=== PATIENT | male | born 1965 | race Caucasian/White ===

== ENCOUNTER 2019-05-18 14:03 | Emergency (ER) | payer BC ==
[2019-05-18 14:12] VITALS: RESP 18
--- NOTE | 2019-05-18 14:25 | ED ---
General Adult HPI - General Source: patient Mode of arrival: ambulatory Limitations: no limitations <Bhavna Kendall - Last Filed: 05/18/19 17:17> <Deysi Mari - Last Filed: 05/21/19 01:38> - General Chief complaint: Abdominal Pain Stated complaint: Side pain Time Seen by Provider: 05/18/19 14:15 - History of Present Illness Initial comments: 54-year-old male history of hypertension and previous hernia repair presents emergency department for evaluation of right groin/right side of the abdomen pain, redness of the skin. Patient states approximately 6 days prior he developed pain in the right groin/abdominal area. He states that it was not initially very red. He states that the pain has been increasing as well as the redness. Denies vesicular lesions, rash. Patient states prior to the onset of the redness he thought he maybe had strained something. Patient states he does not feel the pain is in his joint he states he has no difficulty in breathing however when the skin is stretched her touch there is increasing pain. Patient intermittently went to urgent care they did an x-ray of his right hip he states there is arthritis otherwise no other findings. Patient states he was concerned as infection because he has sensation of feeling warm. Denies recording a temperature. Patient denies general malaise. Patient denies any swelling of the right lower extremity, history of DVT/PE, recent surgeries, history of cancer. Patient denies any chest pain, SOB. Upon arrival patient ambulates witho ut difficulty he appears well, nontoxic. HR WNL-pt afebrile. (Bhavna Kendall) - Related Data Previous Rx's Medication Instructions Recorded Cephalexin [Keflex] 500 mg PO Q6HR 10 Days #40 cap 05/18/19 Sulfamethox-Tmp 800-160Mg [Bactrim 1 tab PO Q12HR 10 Days #20 tab 05/18/19 DS 800-160 mg] Allergies Allergy/AdvReac Type Severity Reaction Status Date / Time No Known Allergies Allergy Verified 05/18/19 14:07 Review of Systems ROS Other: All systems not noted in ROS Statement are negative. <Bhavna Kendall - Last Filed: 05/18/19 17:17> ROS Other: All systems not noted in ROS Statement are negative. <Deysi Mari - Last Filed: 05/21/19 01:38> ROS Statement: Those systems with pertinent positive or pertinent negative responses have been documented in the HPI. Past Medical History Past Medical History: Hypertension History of Any Multi-Drug Resistant Organisms: None Reported Past Surgical History: Hernia Repair Past Psychological History: No Psychological Hx Reported Smoking Status: Never smoker Past Alcohol Use History: Occasional Past Drug Use History: None Reported <Bhavna Kendall - Last Filed: 05/18/19 17:17> General Exam Limitations: no limitations <Bahvna Kendall - Last Filed: 05/18/19 17:17> - General Exam Comments Initial Comments: General: The patient is awake and alert, in no distress, and does not appear acutely ill. Eye: Pupils are equal, round and reactive to light, extra-ocular movements are intact. No nystagmus. There is normal conjunctiva bilaterally. No signs of icterus. Ears, nose, mouth and throat: There are moist mucous membranes and no oral lesions. Neck: The neck is supple, there is no tenderness or JVD. Cardiovascular: There is a regular rate and rhythm. No murmur, rub or gallop is appreciated. Respiratory: Lungs are clear to auscultation, respirations are non-labored, breath sounds are equal. No wheezes, stridor, rales, or rhonchi. Gastrointestinal: Soft, non-distended, non-tender abdomen without masses or organomegaly noted. There is no rebound or guarding present. Musculoskeletal: Upon physical examination of the right hip/flank there is warmth and redness with poorly demarcated borders. There is evidence of folliculitis. No palpable abscess. Extends into groin. There is no evidence of spread into the perineal region. Normal ROM, no tenderness at the hip joint. Strength 5/5. Sensation intact. Radial pulses equal bilaterally 2+. No calf or distal swelling. Neurological: A&O x 3. CN II-XII intact grossly, There are no obvious motor or sensory deficits. Coordination appears grossly intact. Speech is normal. Skin: Skin is warm and dry and no rashes or lesions are noted. Psychiatric: Cooperative, appropriate mood & affect, normal judgment. (Bhavna Kendall) Course Vital Signs 05/18/19 05/18/19 14:07 17:25 Temperature 98.7 F 98.3 F Pulse Rate 85 94 Respiratory 18 18 Rate Blood Pressure 157/93 175/98 O2 Sat by Pulse 98 98 Oximetry Medical Decision Making - Lab Data Result diagrams: 05/18/19 15:02 05/18/19 15:02 <Bhavna Kendall - Last Filed: 05/18/19 17:17> - Lab Data Result diagrams: 05/18/19 15:02 05/18/19 15:02 <Deysi Mari - Last Filed: 05/21/19 01:38> - Medical Decision Making 54-year-old male presenting to [facility] department for evaluation of right side pain. Evidence of cellulitis and physical examination. Given the region laboratory studies were obtained. Negative lactic acid. No leukocytosis. Patient does not appear septic. Patient does have elevation of CRP. Patient was evaluated by attending provider Dr. Mari. CT has findings consistent with a cellulitis. Patient requesting discharge. At this time I feel patient is stable for discharge home her strict return parameters for spread of infection worsening pain fever or flulike symptoms patient verbalized understanding. She was provided an initial dose of IV antibiotics in the emergency department as well as Keflex and Bactrim outpatient. Attendings agreeable discharge patient to follow-up with primary care provider on Monday or Monday he is agreeable discharged appearing well (Bhavna Kendall) I was available for consultation in the emergency department. The history and physical exam were done by the midlevel provider. I was consulted for this patients care. I reviewed the case with the midlevel provider and based on their presentation of the patient, I agree with the assessment, medical decision making and plan of care as documented. There were no signs of necrotizing fascitis or fourneires gangrene. Chart was dictated using [employer] dictation software. Attempts were made to correct any dictation errors however some typographical errors may persist. (Deysi Mari) - Lab Data Lab Results 05/18/19 05/18/19 05/18/19 Range/Units 15:02 15:02 15:02 WBC 10.0 (3.8-10.6) k/uL RBC 4.86 (4.30-5.90) m/uL Hgb 14.5 (13.0-17.5) gm/dL Hct 40.8 (39.0-53.0) % MCV 84.0 (80.0-100.0) fL MCH 29.8 (25.0-35.0) pg MCHC 35.5 (31.0-37.0) g/dL RDW 12.6 (11.5-15.5) % Plt Count 300 (150-450) k/uL Neutrophils % 67 % Lymphocytes % 22 % Monocytes % 6 % Eosinophils % 2 % Basophils % 1 % Neutrophils # 6.7 (1.3-7.7) k/uL Lymphocytes # 2.2 (1.0-4.8) k/uL Monocytes # 0.6 (0-1.0) k/uL Eosinophils # 0.2 (0-0.7) k/uL Basophils # 0.1 (0-0.2) k/uL Sodium 137 (137-145) mmol/L Potassium 4.4 (3.5-5.1) mmol/L Chloride 102 (98-107) mmol/L Carbon Dioxide 24 (22-30) mmol/L Anion Gap 11 mmol/L BUN 15 (9-20) mg/dL Creatinine 0.73 (0.66-1.25) mg/dL Est GFR (CKD-EPI)AfAm >90 (>60 ml/min/1.73 sqM) Est GFR (CKD-EPI)NonAf >90 (>60 ml/min/1.73 sqM) Glucose 110 H (74-99) mg/dL Plasma Lactic Acid [place] 1.2 (0.7-2.0) mmol/L Calcium 9.2 (8.4-10.2) mg/dL Total Bilirubin 0.9 (0.2-1.3) mg/dL AST 36 (17-59) U/L ALT 51 (21-72) U/L Alkaline Phosphatase 53 (38-126) U/L C-Reactive Protein 43.9 H (<10.0) mg/L Total Protein 7.8 (6.3-8.2) g/dL Albumin 4.3 (3.5-5.0) g/dL Disposition Is patient prescribed a controlled substance at d/c from ED?: No Time of Disposition: 17:01 <Bhavna Kendall - Last Filed: 05/18/19 17:17> <Deysi Mari - Last Filed: 05/21/19 01:38> Clinical Impression: Cellulitis of right groin, Folliculitis Disposition: HOME SELF-CARE Condition: Good Instructions (If sedation given, give patient instructions): Cellulitis (ED) Additional Instructions: Please use medication as discussed. Please follow-up with family doctor in the next 2 days. Please return to emergency room if the symptoms increase or worsen or for any other concerns. Prescriptions: Sulfamethox-Tmp 800-160Mg [Bactrim DS 800-160 mg] 1 tab PO Q12HR 10 Days #20 tab Cephalexin [Keflex] 500 mg PO Q6HR 10 Days #40 cap Referrals: Avi Randle MD [Primary Care Provider] - 1-2 days
[2019-05-18] MEDS ORDERED: SODIUM CHLORIDE 0.9% 1,000 ML IV ONE (14:41)
[2019-05-18] MEDS ORDERED: CLINDAMYCIN 600 MG in DEXTROSE 5% IN WATER 50 ML IVPB STA ×2 (14:42)
[2019-05-18] MEDS ORDERED: SODIUM CHLORIDE 0.9% 1,000 ML IV SCH (14:45)
[2019-05-18 15:52] LABS: ALT 51 U/L (21-72); AST 36 U/L (17-59); African American GFR (CKD) >90 (>60 ml/min/1.73 sqM); Albumin 4.3 g/dL (3.5-5.0); Alkaline Phosphatase 53 U/L (38-126); Anion Gap 11 mmol/L; Blood Urea Nitrogen 15 mg/dL (9-20); Calcium 9.2 mg/dL (8.4-10.2); Carbon Dioxide 24 mmol/L (22-30); Chloride 102 mmol/L (98-107); Glucose 110 mg/dL (74-99); Potassium 4.4 mmol/L (3.5-5.1); Sodium 137 mmol/L (137-145); Total Bilirubin 0.9 mg/dL (0.2-1.3); Total Protein 7.8 g/dL (6.3-8.2)
[2019-05-18 15:56] LABS: Basophils # (A) 0.1 k/uL (0-0.2); Basophils % (A) 1 %; Eosinophils # (A) 0.2 k/uL (0-0.7); Eosinophils % (A) 2 %; HCT 40.8 % (39.0-53.0); HGB 14.5 gm/dL (13.0-17.5); Lymphocytes # (A) 2.2 k/uL (1.0-4.8); Lymphocytes % (A) 22 %; MCH 29.8 pg (25.0-35.0); MCHC 35.5 g/dL (31.0-37.0); Mean Platelet Volume 6.2; Monocytes # (A) 0.6 k/uL (0-1.0); Monocytes % (A) 6 %; Neutrophils # (A) 6.7 k/uL (1.3-7.7); Neutrophils % (A) 67 %; Platelet Count 300 k/uL (150-450); RBC 4.86 m/uL (4.30-5.90); RDW 12.6 % (11.5-15.5)
[2019-05-18 16:17] LABS: C Reactive Protein 43.9 mg/L (<10.0)
--- NOTE | 2019-05-18 16:37 | CT ---
EXAMINATION TYPE: CT pelvis w con DATE OF EXAM: 05/18/2019 COMPARISON: None HISTORY: right groin pain CT DLP: 2286 mGycm Automated exposure control for dose reduction was used. CONTRAST: Performed with IV Contrast, patient injected with 100 mL of Isovue 300. FINDINGS: There is no free fluid in the pelvis. Bladder distends smoothly. There are bilateral inguinal hernias that contain fat. There is no sign of a pelvic mass. Appendix appears normal. There is some fat stranding in the subcutaneous tissues lateral to the right ilium and hip joint. The re is a dominant right inguinal lymph node measures 2 x 1.3 cm. There is subcutaneous edema over the lateral aspect of the abdomen that is not included entirely on the exam. The bony pelvis appears inta ct. Proximal femurs and hip joints appear normal. Sacroiliac joints appear normal. IMPRESSION: THERE IS EXTENSIVE SUBCUTANEOUS FAT STRANDING OVER THE LATERAL ASPECT OF THE ABDOMEN AND PELVIS THAT COULD RELATE TO SOME BRUISING. SLIGHTLY ENLARGED RIGHT INGUINAL LYMPH NODE. NO FRACTURE SEEN.
[2019-05-18 17:30] VITALS: BP 175/98; PULSE 94; TEMP 98.3
== END 2019-05-18 17:25 | disposition home or self-care (01) ==
LOC: EC 14:03
DX: L03.314 Cellulitis of groin (principal); L73.9 Follicular disorder, unspecified; R79.82 Elevated C-reactive protein (CRP)
CPT/HCPCS: 36415; 80053; 83605; 85025; 86140; 87040; 72193; 99284; 96365; 96361 ×2; Q9967

== ENCOUNTER 2019-08-12 07:13 | Emergency (ER) | payer BC ==
[2019-08-12 07:17] VITALS: RESP 18; TEMP 98.8
[2019-08-12] MEDS ORDERED: SODIUM CHLORIDE 0.9% 1,000 ML IV STA (07:25)
[2019-08-12] MEDS ORDERED: SODIUM CHLORIDE 0.9% 500 ML 500 ML IV STA (07:25)
--- NOTE | 2019-08-12 07:42 | ED ---
General Adult HPI - General Chief complaint: Abdominal Pain Stated complaint: abd pain Time Seen by Provider: 08/12/19 07:15 Source: patient, RN notes reviewed, old records reviewed Mode of arrival: ambulatory Limitations: no limitations - History of Present Illness Initial comments: This is a 54-year-old male who presents to the emergency department with past medical history of diverticulosis. Patient comes in complaining of a day and a half history of abdominal pain more so on the left than the right. Patient states driving in hitting bumps did causing some pain. Patient states the pain does seem to wax and wane. Patient denies any nausea or vomiting. Patient states she did have little diarrhea but that was after he took some medicine yes terday to promote bowel movements. He doesn't know the name of this medicine. Patient denies any fever chills per patient denies any back pain. Patient denies any dysuria hematuria urinary frequency. - Related Data Previous Rx's Medication Instructions Recorded Cephalexin [Keflex] 500 mg PO Q6HR 10 Days #40 cap 05/18/19 Sulfamethox-Tmp 800-160Mg [Bactrim 1 tab PO Q12HR 10 Days #20 tab 05/18/19 DS 800-160 mg] Amoxicillin/Potassium Clav 1 each PO Q12HR #28 tab 08/12/19 [Augmentin 875-125 Tablet] Allergies Allergy/AdvReac Type Severity Reaction Status Date / Time No Known Allergies Allergy Verified 05/18/19 14:07 Review of Systems ROS Statement: Those systems with pertinent positive or pertinent negative responses have been documented in the HPI. ROS Other: All systems not noted in ROS Statement are negative. Past Medical History Past Medical History: Hypertension Additional Past Medical History / Comment(s): diverticulitis History of Any Multi-Drug Resistant Organisms: None Reported Past Surgical History: Hernia Repair Past Psychological History: No Psychological Hx Reported Smoking Status: Never smoker Past Alcohol Use History: Occasional Past Drug Use History: None Reported General Exam - General Exam Comments Initial Comments: GENERAL: Patient is well-developed and well-nourished. Patient is nontoxic and well- hydrated and is in mild distress. ENT: Neck is soft and supple. No significant lymphadenopathy is noted. Oropharynx is clear. Moist mucous membranes. Neck has full range of motion without eliciting any pain. EYES: The sclera were anicteric and conjunctiva were pink and moist. Extraocular movements were intact and pupils were equal round and reactive to light. Eyelids were unremarkable. PULMONARY: Unlabored respirations. Good breath sounds bilaterally. No audible rales rhonchi or wheezing was noted. CARDIOVASCULAR: There is a regular rate and rhythm without any murmurs gallops or rubs. ABDOMEN: Patient has right lower quadrant abdominal tenderness SKIN: Skin is clear with no lesions or rashes and otherwise unremarkable. NEUROLOGIC: Patient is alert and oriented x3. Cranial nerves II through XII are grossly intact. Motor and sensory are also intact. Normal speech, volume and content. Symmetrical smile. MUSCULOSKELETAL: Normal extremities with adequate strength and full range of motion. No lower extremity swelling or edema. No calf tenderness. LYMPHATICS: No significant lymphadenopathy is noted PSYCHIATRIC: Normal psychiatric evaluation. Limitations: no limitations Course Vital Signs 08/12/19 07:15 Temperature 98.8 F Pulse Rate 95 Respiratory 18 Rate Blood Pressure 154/89 O2 Sat by Pulse 96 Oximetry Medical Decision Making - Medical Decision Making CT of the abdomen and pelvis shows acute diverticulitis with no complications. - Lab Data Result diagrams: 08/12/19 07:33 08/12/19 07:33 Lab Results 08/12/19 08/12/19 08/12/19 Range/Units 07:33 07:33 07:33 WBC 7.8 (3.8-10.6) k/uL RBC 5.47 (4.30-5.90) m/uL Hgb 15.6 (13.0-17.5) gm/dL Hct 45.3 (39.0-53.0) % MCV 82.8 (80.0-100.0) fL MCH 28.5 (25.0-35.0) pg MCHC 34.4 (31.0-37.0) g/dL RDW 12.9 (11.5-15.5) % Plt Count 187 (150-450) k/uL Neutrophils % 74 % Lymphocytes % 14 % Monocytes % 6 % Eosinophils % 1 % Basophils % 2 % Neutrophils # 5.8 (1.3-7.7) k/uL Lymphocytes # 1.1 (1.0-4.8) k/uL Monocytes # 0.5 (0-1.0) k/uL Eosinophils # 0.1 (0-0.7) k/uL Basophils # 0.2 (0-0.2) k/uL Sodium 136 L (137-145) mmol/L Potassium 4.0 (3.5-5.1) mmol/L Chloride 101 (98-107) mmol/L Carbon Dioxide 24 (22-30) mmol/L Anion Gap 11 mmol/L BUN 11 (9-20) mg/dL Creatinine 0.78 (0.66-1.25) mg/dL Est GFR (CKD-EPI)AfAm >90 (>60 ml/min/1.73 sqM) Est GFR (CKD-EPI)NonAf >90 (>60 ml/min/1.73 sqM) Glucose 135 H (74-99) mg/dL Calcium 9.2 (8.4-10.2) mg/dL Total Bilirubin 1.1 (0.2-1.3) mg/dL AST 28 (17-59) U/L ALT 44 (4-49) U/L Alkaline Phosphatase 62 (38-126) U/L Total Protein 8.1 (6.3-8.2) g/dL Albumin 4.5 (3.5-5.0) g/dL Amylase 34 (30-110) U/L Lipase 41 (23-300) U/L Urine Color Yellow Urine Appearance Clear (Clear) Urine pH 6.0 (5.0-8.0) Ur Specific [place] 1.007 (1.001-1.035) Urine Protein Negative (Negative) Urine Glucose (UA) Negative (Negative) Urine Ketones Negative (Negative) Urine Blood Negative (Negative) Urine Nitrite Negative (Negative) Urine Bilirubin Negative (Negative) Urine Urobilinogen <2.0 (<2.0) mg/dL Ur Leukocyte Esterase Negative (Negative) Disposition Clinical Impression: Diverticulitis Disposition: HOME SELF-CARE Condition: Good Instructions (If sedation given, give patient instructions): Diverticulitis (ED) Prescriptions: Amoxicillin/Potassium Clav [Augmentin 875-125 Tablet] 1 each PO Q12HR #28 tab Is patient prescribed a controlled substance at d/c from ED?: No Referrals: Avi Randle MD [Primary Care Provider] - 1-2 days Time of Disposition: 09:03
[2019-08-12 07:45] LABS: Appearance,Urine Clear (Clear); Basophils # (A) 0.2 k/uL (0-0.2); Basophils % (A) 2 %; Bilirubin,Urine Negative (Negative); Blood,Urine Negative (Negative); Color,Urine Yellow; Eosinophils # (A) 0.1 k/uL (0-0.7); Eosinophils % (A) 1 %; Glucose,Urine (UA) Negative (Negative); HCT 45.3 % (39.0-53.0); HGB 15.6 gm/dL (13.0-17.5); Ketones,Urine Negative (Negative); Leukocyte Esterase,Urine Negative (Negative); Lymphocytes # (A) 1.1 k/uL (1.0-4.8); Lymphocytes % (A) 14 %; MCH 28.5 pg (25.0-35.0); MCHC 34.4 g/dL (31.0-37.0); MCV 82.8 fL (80.0-100.0); Mean Platelet Volume 7.3; Monocytes # (A) 0.5 k/uL (0-1.0); Monocytes % (A) 6 %; Neutrophils # (A) 5.8 k/uL (1.3-7.7); Neutrophils % (A) 74 %; Nitrite,Urine Negative (Negative); Platelet Count 187 k/uL (150-450); Protein,Urine Negative (Negative); RBC 5.47 m/uL (4.30-5.90); RDW 12.9 % (11.5-15.5); Specific Gravity,Urine 1.007 (1.001-1.035); Urobilinogen,Urine <2.0 mg/dL (<2.0); WBC 7.8 k/uL (3.8-10.6)
[2019-08-12 07:56] LABS: ALT 44 U/L (4-49); AST 28 U/L (17-59); African American GFR (CKD) >90 (>60 ml/min/1.73 sqM); Albumin 4.5 g/dL (3.5-5.0); Alkaline Phosphatase 62 U/L (38-126); Amylase 34 U/L (30-110); Anion Gap 11 mmol/L; Blood Urea Nitrogen 11 mg/dL (9-20); Calcium 9.2 mg/dL (8.4-10.2); Carbon Dioxide 24 mmol/L (22-30); Chloride 101 mmol/L (98-107); Glucose 135 mg/dL (74-99); Non-African American GFR(CKD) >90 (>60 ml/min/1.73 sqM); Sodium 136 mmol/L (137-145); Total Bilirubin 1.1 mg/dL (0.2-1.3); Total Protein 8.1 g/dL (6.3-8.2)
--- NOTE | 2019-08-12 08:33 | CT ---
EXAMINATION TYPE: CT abdomen pelvis w con DATE OF EXAM: 08/12/2019 COMPARISON: 05/18/2019 HISTORY: Left lower quadrant pain CT DLP: 2048.2 mGycm CONTRAST: CT scan of the abdomen and pelvis is performed without Oral Contrast and with IV Contrast, patient in jected with 100 mL of Isovue 300. FINDINGS: LUNG BASES-: No visible nodule. No infiltrate. LIVER/GB: No calcified gallstones. There is mild hepatic steatosis noted. No space occupying hepat ic lesion. Biliary tree is of normal caliber. PANCREAS: No inflammation. No distinct mass. SPLEEN: Mild splenomegaly with craniocaudal measurement of 13.6 cm. No lesion seen. ADRENALS: No nodule. No thickening. KIDNEYS/BLADDER: No hydronephrosis. No nephrolithiasis. No distinct renal mass. Urinary bladder g rossly unremarkable. BOWEL: Normal appendix. Wall thickening with surrounding inflammatory change involving the proximal s igmoid colon compatible with acute diverticulitis. No evidence for aspiration or perforation. GENITAL ORGANS: No gross abnormality. LYMPH NODES: No greater than 1cm abdominal or pelvic lymph nodes are appreciated. AORTA: No significant abnormality. OSSEOUS STRUCTURES: No significant abnormality is seen. OTHER: No significant additional abnormality is seen. IMPRESSION: 1. Uncomplicated acute diverticulitis of the sigmoid colon. 2. Mild splenomegaly. 3. Mild fatty liver.
[2019-08-12 09:19] VITALS: BP 139/97; PULSE 91
== END 2019-08-12 09:22 | disposition home or self-care (01) ==
LOC: EC 07:13
DX: K57.32 Diverticulitis of large intestine without perforation or abscess without bleeding (principal); I10 Essential (primary) hypertension
CPT/HCPCS: 36415; 80053; 82150; 83690; 85025; 81003; 74177; 96360; 99284; Q9967